=== PATIENT | male | born 1945 | race Caucasian/White ===

== ENCOUNTER → 2016-10-08 | Outpatient (CLI) | payer OTHER ==
[~2016-10-08] MED LIST: BYSTOLIC5 MG PO; CALCIUM 600 + D1 TA1 PO; COATED ASPIRIN325 M1 PO; COQ-10200 MG PO; CRESTOR PO; EFFEXOR-XR150 MG PO; FISH OIL 1,0001 CA2 PO; FISH OIL 1,0001 EACH PO; GABAPENTIN300 MG PO; HYDROCODON-ACE1 EAC7 PO; METFORMIN HCL500 M1 PO; OLANZAPINE5 MG PO; OMEPRAZOLE20 M2 PO; PREVACID 24HR15 MG PO; QUETIAPINE FUMA50 MG PO; RISPERDAL1 M1 PO; VENLAFAXINE HC225 MG PO
--- NOTE | ~2016-10-08 | CT3 ---
[facility] A Service of [facility] RADIOLOGY TEXT RESULTS PATIENT: LOUISA DIXON LOCATION: [facility] : 41 UNIT #: [id number] AGE: [address]: Vitaliy Madden MD SEX: M ORDER DR: [id number] [facility] [address] [place], [place] [address] [id number] O MR#: [id number] Acc #: [id number] NAME: LOUISA DIXON : 1945 SEX: M STUDY DATE/TIME: 10/08/2016 09:07 UNIT: [facility] ROOM: STUDY DESCRIPTION: CT Abd and Pelv WWo Cont Attending Physician: Vitaliy Madden M.D. Referring Physician: Vitaliy Madden M.D. Ordering Physician: Vitaliy Madden M.D. Primary Care Physician: Jeffrey Shahid M.D. MEDICAL IMAGING REPORT This report is preliminary unless electronic signature is present EXAM CT abdomen and pelvis without with contrast, 10/08/2016 09:07 hours HISTORY 71-year-old man with history of bladder cancer for followup. No acute complaints in the abdomen or pelvis. Patient describes some bleeding from the penis [address] abdomen and pelvis, 02/27/2016 TECHNIQUE Helical noncontrasted images were obtained from the lung bases through the pubic symphysis. Postcontrast arterial phase, 90-second delayed phase images were obtained through the abdomen. 5-minute delayed phase images were obtained through the abdomen and pelvis. Contrast was Isovue-370, 100 mL. Total exam DLP is 3069 mGy-cm. This CT exam was performed with one or more of the following radiation dose reduction techniques: automatic exposure control, adjustment of mA and/or kV according to patient size, and iterative reconstruction. FINDINGS Images through the lung bases demonstrate stable linear plate-like scarring at the right lung base. There is no nodule or metastasis. No effusion. Noncontrasted images through the abdomen and pelvis demonstrates stable fatty change in the liver. There is no renal mass or stone. No ureteral calculus. Unopacified bladder appears normal. Postcontrast imaging through the abdomen demonstrates normal appearance to the kidneys. There is no mass or obstruction. [facility] A Service of [facility] RADIOLOGY TEXT RESULTS PATIENT: LOUISA DIOXN LOCATION: [facility] : 41 UNIT #: [id number] AGE: [address]: Vitaliy Madden MD SEX: M ORDER DR: Delayed postcontrast images through the abdomen and pelvis demonstrate normal excretion from both kidneys into nondilated ureters which follow a normal course to the bladder. The bladder is partially filled and partially distended and appears normal. There is no bladder wall thickening or pelvic adenopathy. Stomach, small bowel and colon appear unremarkable. IMPRESSION 1. Negative multiphase imaging of the kidneys, ureters and bladder. There is no evidence of bladder tumor or metastatic disease. 2. Stable linear scarring at the right base. 3. Stable fatty change in the liver. Dictated by... Lenka Armstrong M.D. THIS IS AN ELECTRONICALLY VERIFIED REPORT Lenka Armstrong M.D. at 10/09/2016 2:31 PM Mary Anne TD: 10/08/2016 11:42 JOB #: [id number] MEDICAL IMAGING REPORT Page 1 of 1 COPY
[2016-10-08 09:05] LABS: POC - CREATININE 0.75 mg/dL (0.64-1.27); POC - GFR >60.0 mL/min (>60)
== END | disposition home or self-care (01) ==
LOC: CCAT 08:00
PROVIDERS: Urology
DX: C67.9 Malignant neoplasm of bladder, unspecified (principal); J98.4 Other disorders of lung; K76.0 Fatty (change of) liver, not elsewhere classified
CPT/HCPCS: 74178; 82565; Q9967